=== PATIENT | female | born 1965 | race Caucasian/White ===

== ENCOUNTER 2016-10-20 17:06 | Emergency (ER) | payer OTHER ==
[~2016-10-20] VITALS: Wt 54.0 kg
[2016-10-20 20:04] LABS: URINE BLOOD (Dip) POC 2+ (NEGATIVE)
[2016-10-20 20:30] LABS: ADD SCAN DIFF NO
[2016-10-20] MEDS ORDERED: LORAZEPAM 1 MG TAB PO ONE (20:30)
[2016-10-20 20:35] LABS: BASOPHILS % 0.4 % (0.0-2.0); EOSINOPHILS # 0.2 10^3/ul (0.0-0.5); HEMATOCRIT 47.3 % (37.0-47.0); HEMOGLOBIN 15.7 g/dl (12.0-16.0); LYMPHOCYTES # 3.2 10^3/ul (0.8-2.9); LYMPHOCYTES % 28.5 % (15.0-51.0); MEAN CORPUSCULAR HEMOGLOBIN 29.5 pg (29.0-33.0); MEAN CORPUSCULAR HGB CONC 33.2 g/dl (32.0-37.0); MEAN CORPUSCULAR VOLUME 88.9 fl (82.0-101.0); MEAN PLATELET VOLUME 11.9 fl (7.4-10.4); MONOCYTE # 0.6 10^3/ul (0.3-0.9); MONOCYTES % 5.7 % (0.0-11.0); NEUTROPHILS % 63.2 % (39.0-77.0); PLATELET COUNT 265 10^3/UL (140-415); RED BLOOD COUNT 5.32 10^6/ul (4.20-5.40); RED CELL DISTRIBUTION WIDTH 12.2 % (11.5-14.5); WHITE BLOOD COUNT 11.1 10^3/ul (4.8-10.8)
[2016-10-20 20:41] LABS: ALBUMIN 4.5 g/dl (3.3-4.9); ALBUMIN/GLOBULIN RATIO 1.09; BILIRUBIN,INDIRECT 0.7 mg/dl (0-1.1); BILIRUBIN,TOTAL 0.7 mg/dl (0.2-1.3); CALCIUM 9.3 mg/dl (8.4-10.2); CREATININE 0.51 mg/dl (0.44-1.00); POTASSIUM 3.7 mmol/L (3.5-5.1); TOTAL PROTEIN 8.6 g/dl (6.1-8.1)
[2016-10-20 21:11] LABS: THYROID STIMULATING HORMONE 2.03 MIU/L (0.465-4.680)
--- NOTE | 2016-10-20 22:15 | ERD ---
ER Documentation Chief Complaint Date/Time DATE: 10/20/16 TIME: 20:20 Chief Complaint BILATERAL HAND WEAKNESS/CRAMPING WITH LEG WEAKNESS X 3 WEEKS HPI 51-year-old female admitted toward to the ED complaining of tingling to her hands and feet with cramping earlier today. Admits to stress and anxiety due to interpersonal family issues with her children. No headache, visual changs, focal weakness or numbness. No chest pain or palpitation. No shortness or breath or pleuritic pain. Denies abdominal pain, N/V/D/C. No anorexia or weight loss. No chills or night sweats. Denies suicidal or homicidal ideations. No hallucinations or delusions. ROS All systems reviewed and are negative except as per history of present illness. PMhx/Soc Reviewed in chart. As per HPI. Medical and Surgical Hx: pt denies Medical Hx, pt denies Surgical Hx History of Surgery: No Anesthesia Reaction: No Hx Neurological Disorder: No Hx Respiratory Disorders: No Hx Cardiac Disorders: No Hx Psychiatric Problems: No Hx Miscellaneous Medical Probl: No Hx Alcohol Use: No Hx Substance Use: No Hx Tobacco Use: No Smoking Status: Never smoker FmHx No stroke or cancer. No family history of depression or psychosis. Physical Exam Vitals Vital Signs Date Time Temp Pulse Resp B/P Pulse Ox O2 Delivery O2 Flow Rate FiO2 10/20/16 22:58 98.3 70 18 118/74 99 Room Air 10/20/16 21:08 98.6 72 18 122/68 99 Room Air 10/20/16 17:12 98.0 74 18 127/72 99 Physical Exam Const: Alert, anxious Head: Atraumatic Eyes: Normal Conjunctiva ENT: Normal External Ears, Nose and Mouth. Neck: Full range of motion. Nontender. No meningismus. Resp: Clear to auscultation bilaterally Cardio: Regular rate and rhythm, no murmurs Abd: Soft, non tender, non distended. Normal bowel sounds Skin: No petechiae or rashes Back: No midline or flank tenderness Ext: No cyanosis, or edema. No carpopedal spasm now. Neur: Awake and alert. No focal deficit. Psych: Anxious. Cooperative. Depressed mood. Starts crying when discussing her family. On direct questioning denies suicidal or homicidal ideations. Result Diagram: 10/20/16195410/20/161954 Results 24 hrs Laboratory Tests Test 10/20/16 19:55 10/20/16 20:04 White Blood Count 11.110^3/ul Red Blood Count 5.3210^6/ul Hemoglobin 15.7g/dl Hematocrit 47.3% Mean Corpuscular Volume 88.9fl Mean Corpuscular Hemoglobin 29.5pg Mean Corpuscular Hemoglobin Concent 33.2g/dl Red Cell Distribution Width 12.2% Platelet Count 65156^3/UL Mean Platelet Volume 11.9fl Neutrophils % 63.2% Lymphocytes % 28.5% Monocytes % 5.7% Eosinophils % 2.0% Basophils % 0.4% Nucleated Red Blood Cells % 0.0/100WBC Neutrophils # 7.010^3/ul Lymphocytes # 3.210^3/ul Monocytes # 0.610^3/ul Eosinophils # 0.210^3/ul Basophils # 0.010^3/ul Nucleated Red Blood Cells # 0.010^3/ul Sodium Level 140mmol/L Potassium Level 3.7mmol/L Chloride Level 103mmol/L Carbon Dioxide Level 29mmol/L Anion Gap 12 Blood Urea Nitrogen 17mg/dl Creatinine 0.51mg/dl Glucose Level 115mg/dl Calcium Level 9.3mg/dl Total Bilirubin 0.7mg/dl Direct Bilirubin 0.00mg/dl Indirect Bilirubin 0.7mg/dl Aspartate Amino Transf (AST/SGOT) 27IU/L Alanine Aminotransferase (ALT/SGPT) 28IU/L Alkaline Phosphatase 100IU/L Total Protein 8.6g/dl Albumin 4.5g/dl Globulin 4.10g/dl Albumin/Globulin Ratio 1.09 Thyroid Stimulating Hormone (TSH) 2.030MIU/L Bedside Urine pH (LAB) 5.5 Bedside Urine Protein (LAB) Negative Bedside Urine Glucose (UA) Negative Bedside Urine Ketones (LAB) Negative Bedside Urine Blood 2+ Bedside Urine Nitrite (LAB) Negative Bedside Urine Leukocyte Esterase (L Negative Current Medications Medications (Trade) Dose Ordered Sig/Gordon Route PRN Reason Start Time Stop Time Status Last Admin Dose Admin Lorazepam (Ativan) 1 mg ONCE ONCE PO 10/20/16 20:30 10/20/16 20:31 DC 10/20/16 20:39 Procedures/MDM DOCUMENTS REVIEWED: ED nurse, no prior records available ED COURSE: Ativan 1 mg orally REEXAMINATION/REEVALUATION: Time: 22:10. Doing well. Feels much better. MEDICAL DECISION MAKIN-year-old female admitted toward to the ED complaining of tingling to her hands and feet with cramping earlier today. Patient with with carpopedal spasm secondary to anxiety over family issues. Symptoms of depression but denies hallucinations, suicidality or homicidality. No hypocalcemia. Thyroid function tests are normal. Patient will need outpatient mental health follow-up. Referrals given stable for discharge with precautionary instructions and outpatient follow-up as counseled. Counseled patient regarding diagnostic workup, diagnosis and need for followup. Understands to return to ED if symptoms recur, worsen or any other concerns. Departure Diagnosis: Primary Impression: Acute anxiety Additional Impressions: Carpopedal spasm Adjustment disorder with depressed mood Condition: Stable Patient Instructions: Anxiety Reaction, Depression, Your Body's Response to Anxiety RODO ALBA MD Oct 20, 2016 22:15
[2016-10-20 22:58] VITALS: BP 118/74; PULSE 70; RESP 18; TEMP 98.3
== END 2016-10-20 23:01 | disposition home or self-care (01) ==
LOC: E/R 17:06
DX: F41.9 Anxiety disorder, unspecified (principal); R40.2252 Coma scale, best verbal response, oriented, at arrival to emergency department; R29.0 Tetany; F43.21 Adjustment disorder with depressed mood; R40.2142 Coma scale, eyes open, spontaneous, at arrival to emergency department; R40.2362 Coma scale, best motor response, obeys commands, at arrival to emergency department
CPT/HCPCS: 36415; 80053; 81003; 84443; 85025; 99283